=== PATIENT | male | born 1980 | race Caucasian/White ===

== ENCOUNTER 2021-02-04 08:41 | Emergency (ER) | payer OTHER ==
[~2021-02-04] VITALS: Ht 182.9 cm; Wt 104.5 kg
[2021-02-04 08:52] VITALS: BP 126/83
--- NOTE | 2021-02-04 09:03 | PHYS DOC ---
General Adult EDM: Chief Complaint: LOWER EXT PAIN HPI: HPI: Patient is a 40-year-old male coming in with redness, swelling, and pain to right knee. 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 She woke up with worse pain last night and took 3 ibuprofens. Denies any systemic complaints but is he has some chills last night previously. Denies any prior knee injury. Review of Systems: Review of Systems: All other systems within normal limits except for as noted in the HPI Allergies: Allergies: Allergies Coded Allergies Type Severity Reaction Last Updated Verified No Known Drug Allergies 02/04/21 No Physical Exam: PE: Constitutional: Well developed, well nourished, no acute distress, non-toxic appearance. [] HENT: Normocephalic, atraumatic, bilateral external ears normal, nose normal. [] Eyes: PERRLA, conjunctiva normal, no discharge. [] Neck: No rigidity, supple, no stridor. [] Cardiovascular: Regular rate and rhythm, brisk cap refill [] Lungs & Thorax: Non labored symmetric respirations, no tachypnea or respiratory distress [] Abdomen: Soft, nondistended. Skin: Warm, dry, no erythema, no rash. Right knee: Redness and warmth of anterior knee distal to patella, no fluctuance [] Back: Unremarkable Extremities: No deformities, range of motion grossly intact, no lower extremity edema. Right knee: Range of motion intact, no joint effusion. [] Neurologic: Alert and oriented X 3, no focal deficits noted. [] Psychologic: Affect normal, judgement normal, mood normal. [] EKG: EKG: [] Radiology/Procedures: Radiology/Procedures: [] Heart Score: C/O Chest Pain: No Risk Factors: Risk Factors: DM, Current or recent (<one month) smoker, HTN, HLP, family history of CAD, obesity. Risk Scores: Score 0 - 3: 2.5% MACE over next 6 weeks - Discharge Home Score 4 - 6: 20.3% MACE over next 6 weeks - Admit for Clinical Observation Score 7 - 10: 72.7% MACE over next 6 weeks - Early Invasive Strategies Course & Med Decision Making: Course & Med Decision Making Vital signs stable, afebrile, exam consistent with cellulitis. No fluctuance or drainable abscess, joint effusion, or bursitis on exam. We will treat empirically for septic bursitis as an outpatient since patient has no fever or systemic complaints. Deferred. Patellar bursa aspiration due to overlying cellulitis. Dragon Disclaimer: Dragon Disclaimer: This electronic medical record was generated, in whole or in part, using a voice recognition dictation system. Departure Departure: Impression: Primary Impression: Septic prepatellar bursitis of right knee Disposition: HOME / SELF CARE / HOMELESS Referrals: PCP,NO (PCP) Patient Instructions: Bursitis Scripts Clindamycin Hcl (CLINDAMYCIN HCL) 300 Mg Capsule 1 CAP PO TID for antibiotic for 14 Days, #42 CAP Prov: NATTY RIVERA MD 02/04/21 NATTY RIVERA MD Feb 04, 2021 09:03
--- NOTE | 2021-02-04 10:14 | RAD ---
Exam Date: 02/04/2021 9:00 AM XR KNEE 4 VIEWS WITH PATELLA_RT Indication: Reason: RIGHT KNEE INJURY, PAIN AND SWELLING / Spl. Instructions: / History: . FINDINGS/ IMPRESSION: There is nonspecific prepatellar soft tissue swelling. There may be a joint effusion. No acute fracture or dislocation. Alignment and joint spaces are maintained. Small osteophytes are noted. Electronically signed by: Louie Hernandez MD (02/04/2021 10:11 AM) [id number]
[2021-02-04] MEDS ORDERED: CLIN300C9 PO (10:28)
== END 2021-02-04 10:35 | disposition home or self-care (01) ==
LOC: ER 08:41
DX: M70.41 Prepatellar bursitis, right knee (principal); Y93.89 Activity, other specified
CPT/HCPCS: 73564; 99283